=== PATIENT | female | born 1975 | race Caucasian/White ===

== ENCOUNTER → 2018-12-03 | Day surgery (SDC) | payer OTHER ==
[2018-11-30 11:36] LABS: BASOPHILS % 0.6 % (0.0-1.0); EOSINOPHILS # (AUTO) 0.3 (0.0-0.4); HEMOGLOBIN 13.4 g/dL (12.0-16.0); LYMPHOCYTES # (AUTO) 2.6 (1.0-3.2); LYMPHOCYTES % 41.6 % (18.0-39.1); MEAN CORPUSCULAR HEMOGLOBIN 30.3 pg (28-32); MEAN CORPUSCULAR HGB CONC 32.7 g/dL (31-35); MEAN CORPUSCULAR VOLUME 92.8 fL (81-99); MONOCYTES # (AUTO) 0.8 (0.2-0.8); MONOCYTES % 12.9 % (4.4-11.3); NEUTROPHILS # (AUTO) 2.5 (2.1-6.9); NEUTROPHILS % 39.7 % (38.7-80.0); PLATELET COUNT 194 x10e3/uL (140-360); RED BLOOD COUNT 4.42 x10e6/uL (3.6-5.1); RED CELL DISTRIBUTION WIDTH 13.2 % (11.7-14.4)
[2018-11-30 11:43] LABS: ANION GAP 11.2 mmol/L (8-16); BLOOD UREA NITROGEN 13 mg/dL (7-26); BUN/CREATININE RATIO 16 (6-25); CALCIUM 9.7 mg/dL (8.4-10.2); CARBON DIOXIDE 28 mmol/L (22-29); CHLORIDE 105 mmol/L (98-107); EST GLOMERULAR FILTRATION RATE > 60 ML/MIN (60-); GLUCOSE 97 mg/dL (74-118); POTASSIUM 4.2 mmol/L (3.5-5.1); SODIUM 140 mmol/L (136-145)
--- NOTE | 2018-11-30 11:50 | Diagnostic Imaging Report ---
EXAMINATION: CHEST 2 VIEWS INDICATION: Pre-admit. COMPARISON: None FINDINGS: TUBES and LINES: None. LUNGS: Lungs are well inflated. Lungs are clear. There is no evidence of pneumonia or pulmonary edema. PLEURA: No pleural effusion or pneumothorax. HEART AND MEDIASTINUM: The cardiomediastinal silhouette is unremarkable. BONES AND SOFT TISSUES: No acute osseous abnormality. UPPER ABDOMEN: No free air under the diaphragm. IMPRESSION: No acute radiographic abnormality. Signed by: Dr. Noah Baum MD on 11/30/2018 11:47 AM
[~2018-12-03] MED LIST: BACITRACIN 50,000 UNIT VIAL ONE; BUPIVACAINE 0.25%/EPI 30ML SDV INJ ONE; CEFTRIAXONE SOD 1 GM/NS 50 ML 50 ML IV ONE; DEXAMETHASONE SOD PHOS INJ 4 MG/ML VIAL ONE; FENTANYL CITRATE/PF 100MCG/2 ML INJ ONE; KETOROLAC TROMETHAMINE 30 MG/ML VIAL ONE; LIDOCAINE HCL 2% LOCAL INJ 5 ML SDV VIAL INJ ONE; MIDAZOLAM HCL 2 MG/2 ML VIAL ONE; ONDANSETRON HCL INJ 2MG/ML 2ML 2 MG/ML VIAL ONE; PROPOFOL IV EMULSION 10 MG/ML 20 ML VIAL ONE; ROCURONIUM BROMIDE 10 MG/ML 5ML VIAL ONE; SEVOFLURANE INHAL SOLN 250 ML PEN BTL ONE; TAMIFLU30 MG; TYLENOL; ZITHROMAX1 GM
--- OUTSIDE RECORDS SUMMARY | 2018-12-03 05:33 | XMS REPORT ---
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 Allergies, Adverse Reactions, Alerts This patient has no known allergies or adverse reactions. Medications This patient has no known medications. Results Test Description Test Time Test Comments Text Results Atomic Results Result Comments CHEST 2 VIEWS 2018-11-30 11:45:00 [place] [address] Patient Name: BIJU HENRIQUEZ MR #: [id number] : 1975 Age/Sex: 43/F Req #: [id number] Adm Physician: Ordered by: PEDRO LUIS BRAVO MD Report #: [id number] Location: OR Room/Bed: Procedure: [id number] DX/CHEST 2 VIEWS Exam Date: 11/30/18 Exam Time: 1123 REPORT STATUS: Signed EXAMINATION: CHEST 2 VIEWS INDICATION: Pre-admit. COMPARISON: None FINDINGS: TUBES and LINES: None. LUNGS: Lungs are well inflated. Lungs are clear. There is no evidence of pneumonia or pulmonary edema. PLEURA: No pleural effusion or pneumothorax. HEART AND MEDIASTINUM: The cardiomediastinal silhouette is unremarkable. BONES AND SOFT TISSUES: No acute osseous abnormality. UPPER ABDOMEN: No free air under the diaphragm. IMPRESSION: No acute radiographic abnormality. Signed by: Dr. Kristin Pereira MD on 11/30/2018 11:47 AM Dictated By: KRISTIN PEREIRA MD [id number] Transcribed By: MARÍA on 11/30/18 1147 COPY TO: PEDRO LUIS BRAVO MD
[2018-12-03 09:30] VITALS: BP 116/89
--- NOTE | 2018-12-03 15:17 | Operative Report ---
DATE OF PROCEDURE: 12/03/2018 SURGEON: Pradeep Reyes MD PREOPERATIVE DIAGNOSIS: Stress urinary incontinence. POSTOPERATIVE DIAGNOSIS: Stress urinary incontinence. PROCEDURE PERFORMED: Pubovaginal sling using [employer] Fit Advantage. ANESTHESIA: General anesthesia. ESTIMATED BLOOD LOSS: Minimal. INDICATION: Ms. Isabelle Caballero is a 43-year-old woman with a history of incontinence, which has failed conservative measures. She now presents for definitive surgical management of this problem. PROCEDURE IN DETAIL: The patient was brought into the operating room, placed in supine position. After administration of general anesthesia, was placed in dorsal lithotomy position and prepped and draped in usual sterile fashion. Dunn catheter was placed and the balloon inflated. After local infiltration using 0.25% plain Marcaine, a 1 cm incision was made in the mid anterior vaginal mucosa approximately 1 cm proximal to the urethral meatus. Dissection was carried out in and around the periurethral tissues on both sides. The [employer]vantage trocars were placed first on the right side and subsequently on the left side and allowed to exit through retropubic space. The trocar exit sites were also infiltrated using 0.25% Marcaine. The Dunn catheter was removed and cystoscopy was performed. The ureteral orifices were in normal anatomic position and produced a clear efflux. There was a small injury seen on the left bladder wall and the trocar was removed and placed slightly more laterally. Repeat cystoscopy revealed no continued bladder injury. The bladder was then drained in its entirety and the sling pulled superiorly such that there was 1 cm gap between the posterior urethra and the sling. The vaginal mucosa was then pulled down over this, reapproximated and closed using a [id number] Vicryl suture. The wound was then cleaned and dried and covered with vaginal pack. The abdominal wounds were covered with Dermabond once the tape was cut, flushed with the anterior abdominal wall. The patient was returned to supine position and anesthesia was reversed. She was transferred to bed and taken to the postanesthesia care unit in good condition. Of note, the needle and instrument counts were correct at the conclusion of the case. MD BLAYNE MorelosW/MODL /[id number]
--- NOTE | 2018-12-04 08:50 | Operative Report ---
DATE OF PROCEDURE: 12/03/2018 SURGEON: Pradeep Reyes MD PREOPERATIVE DIAGNOSIS: Stress urinary incontinence. POSTOPERATIVE DIAGNOSIS: Stress urinary incontinence. OPERATIVE PROCEDURE: DICTATION ENDS HERE. Pradeep Reyes MD HLW/MODL /[id number]
== END | disposition home or self-care (01) ==
LOC: OR 05:23
PROVIDERS: ATTEND Urology
DX: N39.3 Stress incontinence (female) (male) (principal); Z01.810 Encounter for preprocedural cardiovascular examination; Z01.812 Encounter for preprocedural laboratory examination; Z01.818 Encounter for other preprocedural examination
CPT/HCPCS: 36415; 57288; 71046; 80048; 81025; 85025; 93005; C1771; J0696; J1100; J1885; J2001; J2250; J2405; J2704